=== PATIENT | female | born 1935 ===

== ENCOUNTER 2016-11-29 07:41 | Emergency (ER) | payer MEDICARE, OTHER | END 2016-11-29 14:17 | disposition home or self-care (01) | LOC: ER 07:41 | DX: R41.82 Altered mental status, unspecified (principal); W01.0XXA Fall on same level from slipping, tripping and stumbling without subsequent striking against object, initial encounter; Y92.009 Unspecified place in unspecified non-institutional (private) residence as the place of occurrence of the external cause; Z79.899 Other long term (current) drug therapy; Z79.82 Long term (current) use of aspirin; Z79.01 Long term (current) use of anticoagulants; Z87.891 Personal history of nicotine dependence; I10 Essential (primary) hypertension; E78.00 Pure hypercholesterolemia, unspecified; I25.2 Old myocardial infarction | CPT/HCPCS: 36415; 70450; 71010; 72170; 80053; 81003; 83605; 83735; 85025; 85610; 85730; 87040; 87804; 87880; 93005 ==